=== PATIENT | female | born 2000 | race Asian ===

== ENCOUNTER 2022-11-29 11:02 | Emergency (ER) | payer SELFPAY ==
[2022-11-29 11:09] VITALS: BP 138/75; PULSE 70; RESP 16; TEMP 36.2; O2SAT 99; BMI 22.2
--- NOTE | 2022-11-29 11:20 | ED.GENADULT ---
HPI - General Adult General Chief complaint: General Medical Stated complaint: hives all over body Time Seen by Provider: 11/29/22 11:19 Source: patient, RN notes reviewed and old records reviewed Mode of arrival: ambulatory History of Present Illness HPI narrative: 22-year-old female with no significant past medical history presenting to the ED complaining of pruritic rash to trunk x 1 week. Has been taking Benadryl at home with some relief. Admits rash started with 1 large spot on left upper thigh then spread throughout trunk. Does report URI symptoms a few weeks ago. Denies new medications/ exposures, known insect bites, new lotions/detergent, SOB/CP, recent travel Onset (ago): week(s) Related Data Previous Rx's Medication Instructions Recorded cetirizine 10 mg capsule (Zyrtec) 10 mg PO DAILY PRN allergy 11/29/22 symptoms #14 caps diphenhydramine HCl 25 mg capsule 25 mg PO TID PRN itching #14 caps 11/29/22 (Benadryl) hydrocortisone 1 % lotion 1 appl topical BID PRN itching 11/29/22 (Cortisone (hydrocortisone)) #120 mL Allergies Allergy/AdvReac Type Severity Reaction Status Date / Time No Known Allergies Allergy Verified 11/29/22 11:08 Review of Systems Review of Systems: Constitutional: No Fever, No Chills ENT/Mouth: No Ear Pain, No Nasal Congestion, No Hoarseness, No sore throat, No Rhinorrhea, No Swallowing Difficulty Cardiovascular: No Chest Pain, No SOB Respiratory: No Cough, No Sputum, No Wheezing Gastrointestinal: No Nausea, No Vomiting, No Abdominal pain Musculoskeletal: No joint pain, No Myalgias, No Joint Swelling Skin: No Skin Lesions, + rash Neuro: No Weakness Yes all other systems are reviewed and are negative Constitutional: Constitutional: Reports as per [facility] Past Medical History Attestation statement: The following information was validated with the patient. Source: old records reviewed Physical Exam ED Vital Signs: Vital Signs - 24 hr 11/29/22 11:09 Temperature 97.1 F Pulse Rate 70 Respiratory Rate 16 Blood Pressure 138/75 Pulse Oximetry 99 Oxygen Delivery Method Room Air BMI result Body Mass Index 22.2 Const General: cooperative, healthy appearing and no acute distress Orientation/consciousness: patient oriented x3 Limitations: no limitations HENMT Head: Yes normal to inspection and Yes atraumatic Ears: hearing grossly normal bilaterally General nose exam: Normal external nose present Face and sinus: Yes normal facial exam Mouth: Normal oral and palatal mucosa present, moist mucous membranes, no drooling and no muffled voice Throat: Yes posterior oropharynx normal, Yes tonsils normal, No peritonsillar mass, No uvula laterally displaced and No uvular edema Eyes General: appearance normal, both eyes and all related structures EOM: EOMs intact bilaterally Neck Neck: Yes normal visual inspection and Yes no meningeal signs Resp Effort & Inspection: normal respiratory effort, no respiratory distress, no stridor and not tachypneic Auscultation: clear to auscultation bilaterally and no wheezes Cardio Rate: regular rate Heart sounds: S1 normal heart sound present and S2 normal heart sound present GI Inspection: Yes normal to inspection Skin Other: + diffuse circular/ oval scaly rash noted to trunk and proximal upper extremities. One patch noted to left upper lateral thigh. no mucous membrane or palm/sole involvement Rashes: rashes noted Wounds: no wounds Neuro General: patient oriented x3, tone normal and no meningeal signs Gait exam (Neuro): Normal gait present Extrem General: Yes normal to inspection Medications Administered Discontinued Medications Generic Name Dose Route Start Last Admin Trade Name Freq PRN Reason Stop Dose Admin Diphenhydramine HCl 25 mg 11/29/22 11:31 11/29/22 11:37 Diphenhydramine Hcl 25 Mg Capsule PO 11/29/22 11:32 25 mg ONCE ONE Administration Loratadine 10 mg 11/29/22 11:33 11/29/22 11:37 Loratadine 10 Mg Tablet PO 11/29/22 11:34 10 mg ONCE ONE Administration Medical Decision Making Medical Decision Making [facility] Narrative: 22-year-old female with no significant past medical history presenting to the ED complaining of pruritic rash to trunk x 1 week. Has been taking Benadryl at home with some relief. on exam vital signs stable, NAD, nontoxic appearing Please refer to course for remaining clinical decision making, interpretation of labs/imaging results, and discussions with consultants and/or family members. Differential Diagnosis Differential Diagnoses: The differential diagnosis associated with the presentation includes As above Admission/Observation Consideration of admission/observation: Escalation of care including admission/observation considered Lab Data [facility] Lab Attestation statement: I reviewed the patient's lab results. Radiology Impression Discussion of test interpretation with radiology: I have reviewed the radiologist's reading. External Record Review External record reviewed: Inpatient record, Office record, Outpatient record, Prior outpatient labs, Prior outpatient radiology, Primary care record and Outside ED record Tests considered The following testing was considered but not selected: As above Discharge Plan Discharge Clinical Impression: Pityriasis rosea Patient Disposition: Home, Self-Care Instructions: Pityriasis rosea (ED) Additional Instructions: this rash is self-limiting Take Benadryl and Zyrtec as needed for itching. Benadryl will make you drowsy Topical hydrocortisone is 8 steroid that will help with itching, apply to rash only, avoid application to face, genital region, hands or feet as potentially can discolored your skin If rash is spreading/ worsening, you develop fever, shortness of breath return to the ED Prescriptions: New hydrocortisone [Cortisone (hydrocortisone)] 1 % lotion 1 appl topical BID PRN (Reason: itching) Qty: 120 0RF diphenhydramine HCl [Benadryl] 25 mg capsule 25 mg PO TID PRN (Reason: itching) Qty: 14 0RF Zyrtec 10 mg capsule 10 mg PO DAILY PRN (Reason: allergy symptoms) Qty: 14 0RF Referrals: Physician,None [Primary Care Provider] - 1 week
[2022-11-29] MEDS: diphenhydrAMINE HCL 25 MG CAPSULE PO (11:37)
[2022-11-29] MEDS: Loratadine 10 MG TABLET PO (11:37)
== END 2022-11-29 11:57 | disposition home or self-care (01) ==
PROVIDERS: Emergency Provider Emergency Medicine Emergency Medical Services
DX: L42 Pityriasis rosea (principal)
CPT/HCPCS: 99282; 99283

== ENCOUNTER 2024-03-07 11:13 | Emergency (ER) | payer MEDICAID, SELFPAY ==
[2024-03-07 12:16] VITALS: BP 106/66; PULSE 83; RESP 18; TEMP 36.9; O2SAT 99; BMI 23.2
--- NOTE | 2024-03-07 12:16 | ED.GENADULT ---
HPI - General Adult General Chief complaint: Nausea/Vomiting/Diarrhea Stated complaint: weal nausea Time Seen by Provider: 03/07/24 18:49 Source: patient Mode of arrival: ambulatory Limitations: no limitations History of Present Illness ED Provider: Macey Doyle PA-C HPI narrative: Patient is a 23 year old assigned female at with no reported medical history presenting to the emergency department today with nausea and vomiting. Patient states that this has happened before and she needed IV fluids to fix it. Patient denies any dizziness, lightheadedness, abdominal pain, fever, chills, blurry vision, double vision, loss of vision, chest pain, difficulty breathing, shortness of breath, back pain, night sweats, pain with urination, increased urinary frequency, increased urinary urgency, blood in her urine or stool, syncope or a near syncopal episode, recent trauma or falls, bowel incontinence, bladder incontinence, or any other complaints at this time. Onset (ago): day(s) Relieving factors: none Exacerbating factors: none Associated symptoms: nausea/vomiting Treatments prior to arrival: none Related Data Previous Rx's ?Medication ?Instructions ?Recorded cetirizine 10 mg capsule (Zyrtec) 10 mg PO DAILY PRN allergy 11/29/22 symptoms #14 caps diphenhydramine HCl 25 mg capsule 25 mg PO TID PRN itching #14 caps 11/29/22 (Benadryl) hydrocortisone 1 % lotion 1 appl topical BID PRN itching 11/29/22 (Cortisone (hydrocortisone)) #120 mL metoclopramide HCl 10 mg tablet 10 mg PO Q6H PRN nausea and 03/08/24 (Reglan) vomiting #20 tabs vitamins no.162-iron 1 tab PO DAILY 90 days #90 tabs 03/08/24 gluconate 12 mg-folic acid 1 mg tablet Allergies Allergy/AdvReac Type Severity Reaction Status Date / Time No Known Allergies Allergy Verified 03/08/24 08:19 Review of Systems Constitutional: Constitutional: Reports no additional constitutional complaints, Denies chills, Denies fever(s) and Denies night sweats Eyes: Eyes: Reports no additional eye complaints, Denies blurry vision, Denies change in vision, Denies diplopia, Denies eye discharge, Denies loss of vision and Denies eye pain ENT: Denies dizziness Cardiovascular: Cardiovascular: Reports no additional cardiovascular complaints, Denies chest pain, Denies lightheadedness, Denies Loss of Consciousness and Denies dyspnea Respiratory: Respiratory: Reports no additional respiratory complaints and Denies dyspnea Gastrointestinal: Gastrointestinal: Reports no additional gastrointestinal complaints, Denies abdominal pain, Denies melena, Denies hematochezia, Denies change in bowel habits, Denies change in stool character, Reports nausea and Reports vomiting Genitourinary: Genitourinary: Denies hematuria, Denies urinary frequency, Denies dysuria, Denies urinary incontinence, Denies urinary hesitancy and Denies urinary urgency Musculoskeletal: Musculoskeletal: Reports no additional musculoskeletal complaints, Denies numbness and Denies tingling Neurologic: Denies dizziness, Denies loss of vision, Denies numbness and Denies tingling Psychiatric: Psychiatric: Reports no additional psychiatric complaints Endocrine: Endocrine: Reports no additional endocrine complaints Hematologic/Lymphatic: Hematologic/Lymphatic: Reports no additional hematologic/lymphatic complaints Allergic/Immunologic: Allergic/Immunologic: Reports no additional allergic/immunologic complaints PMFSH Past Medical History Attestation statement: The following information was validated with the patient. Source: old records reviewed and nursing notes reviewed Social History Social History Smoked in Last 30 Days: No Use of substances other than those prescribed or required for medical reasons: No Advance Directives: No Advance Directives Information Provided: No Do you have a plan to hurt others: No Plan Physical Exam ED Vital Signs: Vital Signs - 24 hr 03/07/24 12:16 Temperature 98.4 F Pulse Rate 83 Respiratory Rate 18 Blood Pressure 106/66 Pulse Oximetry 99 Oxygen Delivery Method Room Air BMI result Body Mass Index 23.2 Const General: cooperative, no acute distress, alert and awake Nutritional Appearance: well nourished Orientation/consciousness: patient oriented x3 Limitations: no limitations HENMT Head: Yes normal to inspection and Yes atraumatic Ears: hearing grossly normal bilaterally and external ears normal General nose exam: Normal external nose present, no nasal discharge noted and no epistaxis Face and sinus: Yes normal facial exam, No abrasion and No laceration Mouth: Normal oral and palatal mucosa present, no drooling and no muffled voice Eyes General: appearance normal, both eyes and all related structures Periorbital: periorbital findings normal Eyelids: Yes eyelids normal Conjunctivae: conjunctivae normal Pupils: Equal, round and reactive pupils present EOM: EOMs intact bilaterally Neck Neck: Yes normal visual inspection, Yes full ROM and Yes no lymphadenopathy Chest Chest palpation & inspection: normal inspection of the chest Resp Effort & Inspection: normal respiratory effort and able to speak in complete sentences GI Inspection: Yes normal to inspection Palpation (GI): Soft to palpation, not firm, nontender, no guarding and not rigid Neuro General: patient oriented x3 and moves all extremities Cranial nerves: Yes Equal, round and reactive pupils present Cognition (Neuro): normal cognition Extrem General: Yes normal to inspection, Yes full ROM and Yes capillary refill normal Psych Appearance: grossly normal Mental Status: mental status grossly normal Affect: normal affect Attitude: cooperative Thought process: Normal thought process present Thought content: Normal thought content present Insight: Good insight present (Psych) Course Course Course Narrative: RME performed by Macey Doyle PA-C. Patient is a 23 year old assigned female at presenting to the emergency department with nausea. Patient states that 2 years ago she was hypovolemic and needed IV fluids to fix it. Detailed physical exam and review of systems are deferred to the boat buffer plastic. Labs and swabs ordered. Patient placed back in the waiting room pending room availability and results. Medical Decision Making Medical Decision Making [facility] Narrative: Patient is a 23 year old assigned female at with no reported medical history presenting to the emergency department today with nausea and vomiting. Patient's limited physical exam performed in triage was unremarkable. Patient's blood work showed an elevated beta HCG consistent with . I explained to the patient her results and that I wanted to obtain an US. However, patient left the department without completing treatment. Patient left the department before myself or any of the other emergency department clinicians could explain to or review with the patient; physical exam findings, remaining test results, need or lack there of for additional testing, need or lack there of for a procedure to be performed, need or lack there of for hospital admission / transfer, need or lack there of for prescription medication, treatment options, or a treatment plan. Differential Diagnosis Differential Diagnoses: The differential diagnosis associated with the presentation includes Nausea Vomiting Viral illness Admission/Observation Consideration of admission/observation: Escalation of care including admission/observation considered Patient would have been admitted to the hospital had her work up had any findings where hospital admission was appropriate and her clinical presentation warranted hospital admission. Lab Data [facility] Lab Attestation statement: I reviewed the patient's lab results. My interpretation of these results are in the [facility] Rationale portion of this note. 03/07/24 12:26 03/07/24 12:26 Labs: Lab Results 03/07/24 Range/Units 12:26 WBC 10.0 (4.8-10.8) X10*3/uL RBC 4.43 (4.20-5.50) X10*6/uL Hgb 13.5 (12.0-16.0) g/dl Hct 38.3 (37.0-47.0) % MCV 86.5 (80.0-98.0) fL MCH 30.5 (27.0-33.0) pg MCHC 35.2 H (31.0-35.0) g/dl RDW 13.2 (11.0-16.0) % Plt Count 267 (160-400) X10*3/uL MPV 9.9 (9.4-12.3) fL Immature Gran % (Auto) 0.3 (0.0-0.4) % Neut % (Auto) 72.4 (45-73) % Lymph % (Auto) 20.5 (20-40) % Peach % (Auto) 6.1 (2-11) % Eos % (Auto) 0.3 (0-4) % Baso % (Auto) 0.4 (0-2) % Lymph # (Auto) 2.0 (1.2-4.9) X10*3/uL Peach # (Auto) 0.6 (0.1-1.2) X10*3/uL Eos # (Auto) 0.0 (0.0-0.4) X10*3/uL Baso # (Auto) 0.0 (0.0-0.2) X10*3/uL Abs Immat Gran (auto) 0.03 (0.00-0.03) X10*3/uL Absolute Neuts (auto) 7.2 (2.0-8.3) x10*3/uL Absolute Nucleated RBC 0.000 (0.0-0.012) X10*3/uL Nucleated RBC % (auto) 0.0 (0.0-0.2) /100WBC Sodium 137 (135-145) mmol/L Potassium 3.6 (3.3-5.1) mmol/L Chloride 108 (96-108) mmol/L Carbon Dioxide 20 L (22-29) mmol/L Anion Gap 13 (12-20) BUN 16 (9-16) mg/dL Creatinine 0.81 (0.5-1.4) mg/dL Estim Creat Clear Calc 99.4 Estimated GFR > 60 Random Glucose 89 (60-115) mg/dL Calcium 9.1 (8.4-10.2) mg/dL Magnesium 2.1 (1.6-2.6) mg/dL Total Bilirubin 1.1 H (0.0-1.0) mg/dL AST 18 (5-31) U/L ALT 22 (0-31) U/L Alkaline Phosphatase 61 (39-117) U/L Total Protein 7.0 (6.5-8.0) g/dL Albumin 4.1 (3.5-5.0) g/dL Beta HCG, Quant 08166 mIU/mL Influenza Type A (PCR) NEGATIVE (Negative) Influenza Type B (PCR) NEGATIVE (Negative) RSV RNA Qual (PCR) NEGATIVE (Negative) SARS-CoV-2 RNA (RT-PCR) NEGATIVE (Negative) Discharge Plan Discharge Clinical Impression: Nausea & vomiting, Patient Disposition: Left W/O Completing Treatment Prescriptions: No Action hydrocortisone [Cortisone (hydrocortisone)] 1 % lotion 1 appl topical BID PRN (Reason: itching) Qty: 120 0RF diphenhydramine HCl [Benadryl] 25 mg capsule 25 mg PO TID PRN (Reason: itching) Qty: 14 0RF Zyrtec 10 mg capsule 10 mg PO DAILY PRN (Reason: allergy symptoms) Qty: 14 0RF metoclopramide HCl [Reglan] 10 mg tablet 10 mg PO Q6H PRN (Reason: nausea and vomiting) Qty: 20 0RF PNV no.162-iron glu-folic acid 12-1 mg tablet 1 tab PO DAILY 90 Days Qty: 90 0RF Discharge Date/Time: 03/07/24 18:55
[2024-03-07 12:33] LABS: Basophils Percent Auto 0.4 % (0-2); Eosinophils Percent Auto 0.3 % (0-4); Hematocrit 38.3 % (37.0-47.0); Hemoglobin 13.5 g/dl (12.0-16.0); Imm Gran Abs Auto 0.03 X10*3/uL (0.00-0.03); Imm Gran Pct Auto 0.3 % (0.0-0.4); Lymphocytes Percent Auto 20.5 % (20-40); MANUAL DIFF FLAG NO; Mean Corpuscular HGB Conc 35.2 g/dl (31.0-35.0); Mean Corpuscular Hemoglobin 30.5 pg (27.0-33.0); Mean Corpuscular Volume 86.5 fL (80.0-98.0); Mean Platelet Volume 9.9 fL (9.4-12.3); Monocytes Absolute Auto 0.6 X10*3/uL (0.1-1.2); Monocytes Percent Auto 6.1 % (2-11); Neutrophils Absolute Auto 7.2 x10*3/uL (2.0-8.3); Neutrophils Percent Auto 72.4 % (45-73); Platelet Count 267 X10*3/uL (160-400); Red Blood Count 4.43 X10*6/uL (4.20-5.50); Red Cell Distribution Width 13.2 % (11.0-16.0)
[2024-03-07 12:58] LABS: Alanine Aminotransferase 22 U/L (0-31); Albumin Level 4.1 g/dL (3.5-5.0); Alkaline Phosphatase 61 U/L (39-117); Anion Gap 13 (12-20); Aspartate Amino Transferase 18 U/L (5-31); Bilirubin Total 1.1 mg/dL (0.0-1.0); Blood Urea Nitrogen 16 mg/dL (9-16); Calcium 9.1 mg/dL (8.4-10.2); Carbon Dioxide 20 mmol/L (22-29); Chloride 108 mmol/L (96-108); Creatinine Clr Calc Pharmacy 99.4; Estimated Glomerular Filt Rate > 60; Glucose Random 89 mg/dL (60-115); Magnesium 2.1 mg/dL (1.6-2.6); Potassium 3.6 mmol/L (3.3-5.1); Sodium 137 mmol/L (135-145)
[2024-03-07 13:11] LABS: Influenza A PCR NEGATIVE (Negative); Influenza B PCR NEGATIVE (Negative); Resp Syncy Virus RNA Qual PCR NEGATIVE (Negative); SARS COV2 PCR INHOUSE NEGATIVE (Negative)
== END 2024-03-07 18:55 | disposition left against medical advice (07) ==
PROVIDERS: Physician Assistant Medical; Emergency Provider Emergency Medicine
DX: R11.2 Nausea with vomiting, unspecified (principal); R10.2 Pelvic and perineal pain; Z03.818 Encounter for observation for suspected exposure to other biological agents ruled out; Z79.899 Other long term (current) drug therapy
CPT/HCPCS: 0241U; 80053; 83735; 84702; 85025; 99281

== ENCOUNTER 2024-03-08 08:13 | Emergency (ER) | payer MEDICAID, SELFPAY ==
[2024-03-08 08:17] VITALS: BP 87/63; PULSE 100; RESP 16; TEMP 37.3; O2SAT 97; BMI 23.2
--- NOTE | 2024-03-08 08:41 | ED_ITS ---
HPI - Nausea/Vomiting/Diarrhea General Chief complaint: Nausea/Vomiting/Diarrhea Stated complaint: Vomiting Time Seen by Provider: 03/08/24 08:41 Source: patient Mode of arrival: ambulatory Limitations: no limitations History of Present Illness ED Provider: Dr. Elroy Clark HPI Narrative: 23-year-old female LMP January 30 2024 5 weeks and 3 days by dates who presents emergency department for evaluation of nausea, vomiting, unable to eat or drink times several days. Patient states that she was 1 week late for her menstrual period and took a home test which was positive. She states she was feeling lightheaded and dizzy and this is happened to her in the past whenever she has not been able to eat or drink fluids. She denied fever or chills. She denied abdominal pain, urinary frequency, urgency or dysuria. Related Data Previous Rx's ?Medication ?Instructions ?Recorded cetirizine 10 mg capsule (Zyrtec) 10 mg PO DAILY PRN allergy 11/29/22 symptoms #14 caps diphenhydramine HCl 25 mg capsule 25 mg PO TID PRN itching #14 caps 11/29/22 (Benadryl) hydrocortisone 1 % lotion 1 appl topical BID PRN itching 11/29/22 (Cortisone (hydrocortisone)) #120 mL metoclopramide HCl 10 mg tablet 10 mg PO Q6H PRN nausea and 03/08/24 (Reglan) vomiting #20 tabs vitamins no.162-iron 1 tab PO DAILY 90 days #90 tabs 03/08/24 gluconate 12 mg-folic acid 1 mg tablet Allergies Allergy/AdvReac Type Severity Reaction Status Date / Time No Known Allergies Allergy Verified 03/08/24 08:19 Review of Systems 2 Review of Systems: Yes all other systems are reviewed and are negative [facility] Past Medical History [facility] Narrative: Social history: She denies tobacco, alcohol and drug use Social History Social History Smoked in Last 30 Days: No Use of substances other than those prescribed or required for medical reasons: No Advance Directives: No Advance Directives Information Provided: No Do you have a plan to hurt others: No Plan Physical Exam 2 Vital Signs: Vital Signs: Last Vital Signs Temp 98.4 F 03/08/24 13:51 Pulse 72 03/08/24 13:51 Resp 12 03/08/24 13:51 BP 106/68 03/08/24 13:51 Pulse Ox 99 03/08/24 13:51 O2 Del Method Room Air 03/08/24 13:51 BMI result Body Mass Index 23.2 Vital signs were normal Exam: General: Awake, alert in no distress Head: Normocephalic, atraumatic EENT: PERRL, Lids normal, sclera normal, conjunctiva normal, nose normal , ears normal, throat without erythema or exudates Neck: Supple, no adenopathy Lung: breath sounds symmetric, no wheezing, rales or rhonchi Chest: symmetric movement, nontender Heart: regular rate and rhythm, normal S1, S2 no murmurs or rubs Abdomen: soft, non-tender, nondistended, normal bowel sounds Back: no vertebral tenderness, no CVAT Extremities: no deformities, moves all extremities symmetrically Psych: Pleasant, cooperative Medications Administered Discontinued Medications Generic Name Dose Route Start Last Admin Trade Name Griselda PRN Reason Stop Dose Admin Lactated Ringer's 1,000 mls @ 999 mls/hr 03/08/24 08:53 03/08/24 11:29 Lr IV 03/08/24 09:53 Infused .Q1H1M STA Infusion Lactated Ringer's 1,000 mls @ 999 mls/hr 03/08/24 08:54 03/08/24 11:29 Lr IV 03/08/24 09:54 Infused .Q1H1M STA Infusion Ondansetron HCl 4 mg 03/08/24 08:53 03/08/24 08:58 Ondansetron Hcl 4 Mg/2 Ml Vial IVPUSH 03/08/24 08:54 4 mg ONCE ONE Administration Medical Decision Making Medical Decision Making [facility] Narrative: 23-year-old female LMP January 30 2024 5 weeks and 3 days by dates who presents emergency department for evaluation of nausea, vomiting, unable to eat or drink times several days-patient was several days late on her. And did a home test which was positive. She denied abdominal pain, fever or chills. She was concerned that she may be hypovolemic which is happened to her in the past when she has not been able to eat or drink therefore she came to the emergency department for evaluation. Differential diagnosis: ?Includes but is not limited to viral syndrome, vomiting associated with , ectopic , electrolyte abnormalities, anemia, dehydration, volume depletion Following evaluation was ordered: CBC, CMP, lipase, quantitative beta-hCG, urinalysis, COVID-19, influenza, RSV Patient was initially treated with the following: Zofran 4 mg IV, lactated Ringer's IV x2 L Course: Patient's physical examination revealed no abdominal tenderness which was reassuring and I do not think that she has an ectopic . Patient's laboratory evaluation was consistent with her nausea and vomiting with no specific or significant abnormalities. Patient's quantitative beta-hCG was appropriately elevated. Patient did feel significantly better after the above treatment. She was discharged home and given prescriptions for Reglan 10 mg every 6 hours as needed for nausea and vomiting and vitamins daily. Patient will be referred to our OBGYN service for care. She was given printed and verbal instructions and discharged home. Admission/Observation Consideration of admission/observation: Escalation of care including admission/observation considered Lab Data MDM Lab Attestation statement: I reviewed the patient's lab results. My interpretation of the patient's laboratory evaluation: CBC was normal. CMP revealed a low CO2 of 18-most likely secondary to vomiting. Bilirubin was elevated 1.2. Quantitative beta-hCG was elevated at 80,661 03/08/24 08:40 03/08/24 08:40 Labs: Lab Results 03/08/24 03/08/24 Range/Units 08:40 11:31 WBC 9.5 (4.8-10.8) X10*3/uL RBC 4.53 (4.20-5.50) X10*6/uL Hgb 13.7 (12.0-16.0) g/dl Hct 38.9 (37.0-47.0) % MCV 85.9 (80.0-98.0) fL MCH 30.2 (27.0-33.0) pg MCHC 35.2 H (31.0-35.0) g/dl RDW 12.9 (11.0-16.0) % Plt Count 270 (160-400) X10*3/uL MPV 9.8 (9.4-12.3) fL Immature Gran % (Auto) 0.4 (0.0-0.4) % Neut % (Auto) 73.7 H (45-73) % Lymph % (Auto) 20.0 (20-40) % [place] % (Auto) 5.2 (2-11) % Eos % (Auto) 0.1 (0-4) % Baso % (Auto) 0.6 (0-2) % Lymph # (Auto) 1.9 (1.2-4.9) X10*3/uL [place] # (Auto) 0.5 (0.1-1.2) X10*3/uL Eos # (Auto) 0.0 (0.0-0.4) X10*3/uL Baso # (Auto) 0.1 (0.0-0.2) X10*3/uL Abs Immat Gran (auto) 0.04 H (0.00-0.03) X10*3/uL Absolute Neuts (auto) 7.0 (2.0-8.3) x10*3/uL Absolute Nucleated RBC 0.000 (0.0-0.012) X10*3/uL Nucleated RBC % (auto) 0.0 (0.0-0.2) /100WBC Sodium 137 (135-145) mmol/L Potassium 3.4 (3.3-5.1) mmol/L Chloride 108 (96-108) mmol/L Carbon Dioxide 18 L (22-29) mmol/L Anion Gap 14 (12-20) BUN 15 (9-16) mg/dL Creatinine 0.88 (0.5-1.4) mg/dL Estim Creat Clear Calc 91.5 Estimated GFR > 60 Random Glucose 95 (60-115) mg/dL Calcium 9.4 (8.4-10.2) mg/dL Total Bilirubin 1.2 H (0.0-1.0) mg/dL AST 19 (5-31) U/L ALT 21 (0-31) U/L Alkaline Phosphatase 62 (39-117) U/L Total Protein 7.0 (6.5-8.0) g/dL Albumin 4.1 (3.5-5.0) g/dL Lipase 17 (8-78) U/L Beta HCG, Quant 75467 mIU/mL Urine Color Yellow Urine Appearance Clear Urine pH 6.5 (5.0-9.0) Ur Specific [place] 1.020 (1.005-1.025) Urine Protein Negative (Neg-Trace) mg/dL Urine Glucose (UA) Negative (Negative) mg/dL Urine Ketones >=160 (Negative) mg/dL Urine Blood Negative (Negative) Urine Nitrite Negative (Negative) Ur Leukocyte Esterase Small (1+) H (Negative) Urine RBC 0-2 (0-2) /HPF Urine WBC 11-20 H (0-5) /HPF Ur Squamous Epith Cells 6-10 (0-2) /HPF Urine Bacteria None Seen (None Seen) Hyaline Casts 0-2 (0-2) /LPF Influenza Type A (PCR) NEGATIVE (Negative) Influenza Type B (PCR) NEGATIVE (Negative) RSV RNA Qual (PCR) NEGATIVE (Negative) SARS-CoV-2 RNA (RT-PCR) NEGATIVE (Negative) Prescription Management I considered prescription management with: Other (Antiemetics, vitamins) Discharge Plan Discharge Clinical Impression: First trimester , Vomiting affecting , Fluid volume depletion Patient Disposition: Home, Self-Care Instructions: Nausea and Vomiting in (ED) Additional Instructions: Your blood work was unremarkable. You did have a blood/serum test. Based on your last menstrual period of 01/30/2024 you are 5 weeks and 3 days with an estimated due date of 11/05/2024. Take Reglan (metoclopramide) 10 mg pills, 1 pill every 6 hours as needed for nausea and vomiting. You can also take Tylenol 500 mg pills, 2 pills every 6 hours as needed for pain. Take the vitamins daily. Follow-up with our OBGYN group to start care. Call Dr. Eller these office number today and get the next available appointment Follow-up with your doctor in 2 days. Please return to the emergency department if your symptoms get worse or if you develop any symptoms that are concerning to you. Prescriptions: New metoclopramide HCl [Reglan] 10 mg tablet 10 mg PO Q6H PRN (Reason: nausea and vomiting) Qty: 20 0RF PNV no.162-iron glu-folic acid 12-1 mg tablet 1 tab PO DAILY 90 Days Qty: 90 0RF No Action hydrocortisone [Cortisone (hydrocortisone)] 1 % lotion 1 appl topical BID PRN (Reason: itching) Qty: 120 0RF diphenhydramine HCl [Benadryl] 25 mg capsule 25 mg PO TID PRN (Reason: itching) Qty: 14 0RF Zyrtec 10 mg capsule 10 mg PO DAILY PRN (Reason: allergy symptoms) Qty: 14 0RF Referrals: Oliver Eller MD [Physician] - 2 weeks (Vomiting , LMP 01/30/2024, 5 weeks 3 days, [place] 10/30) Interventions: ED Discharge Assessment Last Done: 03/08/24 13:51 Discharge Date/Time: 03/08/24 13:51 Print Language: Croatian
[2024-03-08 08:46] LABS: MANUAL DIFF FLAG NO
[2024-03-08 08:52] LABS: Basophils Absolute Auto 0.1 X10*3/uL (0.0-0.2); Basophils Percent Auto 0.6 % (0-2); Eosinophils Percent Auto 0.1 % (0-4); Hematocrit 38.9 % (37.0-47.0); Hemoglobin 13.7 g/dl (12.0-16.0); Imm Gran Abs Auto 0.04 X10*3/uL (0.00-0.03); Imm Gran Pct Auto 0.4 % (0.0-0.4); Lymphocytes Absolute Auto 1.9 X10*3/uL (1.2-4.9); Mean Corpuscular HGB Conc 35.2 g/dl (31.0-35.0); Mean Corpuscular Hemoglobin 30.2 pg (27.0-33.0); Mean Corpuscular Volume 85.9 fL (80.0-98.0); Mean Platelet Volume 9.8 fL (9.4-12.3); Monocytes Absolute Auto 0.5 X10*3/uL (0.1-1.2); Monocytes Percent Auto 5.2 % (2-11); Neutrophils Percent Auto 73.7 % (45-73); Platelet Count 270 X10*3/uL (160-400); Red Blood Count 4.53 X10*6/uL (4.20-5.50); Red Cell Distribution Width 12.9 % (11.0-16.0); White Blood Count 9.5 X10*3/uL (4.8-10.8)
[2024-03-08] MEDS: ondansetron HCL 4 MG/2 ML VIAL IVPUSH (08:58)
[2024-03-08] MEDS: Lactated Ringers 1,000 ML 999 ML IV ×2 (09:02→09:03)
[2024-03-08 09:04] LABS: Alanine Aminotransferase 21 U/L (0-31); Albumin Level 4.1 g/dL (3.5-5.0); Alkaline Phosphatase 62 U/L (39-117); Anion Gap 14 (12-20); Aspartate Amino Transferase 19 U/L (5-31); Bilirubin Total 1.2 mg/dL (0.0-1.0); Blood Urea Nitrogen 15 mg/dL (9-16); Calcium 9.4 mg/dL (8.4-10.2); Carbon Dioxide 18 mmol/L (22-29); Chloride 108 mmol/L (96-108); Creatinine Clr Calc Pharmacy 91.5; Estimated Glomerular Filt Rate > 60; Glucose Random 95 mg/dL (60-115); Potassium 3.4 mmol/L (3.3-5.1); Sodium 137 mmol/L (135-145)
[2024-03-08 09:06] LABS: Lipase 17 U/L (8-78)
--- NOTE | 2024-03-08 09:26 | PC.NURSE ---
late charting due to patient care, patient arrives ambulatory with steady gait through external triage with cc of nausea and vomiting and dehydration, patient states she came in yesterday but it was too busy so she left without completing workup. patient states she just found out she is approximately 5wks , states she has been unable to eat or drink much and everything has been making her nauseous. this is the patients first and she denies abdominal tenderness, denies any spotting or bleeding or cramping, patient denies any pain upon assessment, states she just feels dehydrated . PIV placed by this RN, blood work drawn and sent to lab. IV fluids running and patient medicated per MAR. offering no further complaints at this time, educated on need for urine sample. patient agreeable at this time with plan of care
[2024-03-08 09:32] LABS: Influenza A PCR NEGATIVE (Negative); Influenza B PCR NEGATIVE (Negative); Resp Syncy Virus RNA Qual PCR NEGATIVE (Negative); SARS COV2 PCR INHOUSE NEGATIVE (Negative)
[2024-03-08 10:27] VITALS: BP 106/68; PULSE 72; RESP 12; TEMP 36.9; O2SAT 99
[2024-03-08 11:40] LABS: Appearance Urine Clear; Color Urine Yellow; Glucose Urine UA Negative (Negative); Leukocyte Esterase Urine Small (1+) (Negative); Nitrite Urine Negative (Negative); PH 6.5 (5.0-9.0); UMIC TRIGGER UACC YES; Urine Blood Negative (Negative); Urine Ketones >=160 mg/dL (Negative); Urine Protein Negative (Neg-Trace)
[2024-03-08 11:42] LABS: Bacteria Urine None Seen (None Seen); Hyaline Casts Urine 0-2 /LPF (0-2); RBC Urine 0-2 /HPF (0-2); UACC Culture Trigger YES
--- NOTE | 2024-03-08 12:47 | PC.NURSE ---
patient requesting food, per MD ness to PO trial patinet, patient provided with gingerale and crackers upon request.
[2024-03-08 13:51] VITALS: BP 106/68; PULSE 72; RESP 12; TEMP 36.9; O2SAT 99
== END 2024-03-08 13:51 | disposition home or self-care (01) ==
PROVIDERS: Emergency Provider Emergency Medicine Emergency Medical Services
DX: O21.0 Mild hyperemesis gravidarum (principal); R35.0 Frequency of micturition; R10.2 Pelvic and perineal pain; Z03.818 Encounter for observation for suspected exposure to other biological agents ruled out; Z3A.01 Less than 8 weeks gestation of pregnancy
CPT/HCPCS: 0241U; 36415; 80053; 81001; 83690; 84702; 85025; 87086; 96361; 96374; 99284; J2405; J7120